=== PATIENT | male | born 1940 | race Caucasian/White ===

== ENCOUNTER → 2023-10-07 07:27 | Outpatient (REF) | payer OTHER, SELFPAY ==
[2023-10-07 08:18] VITALS: BP 115/70; BP_SYST 67
== END ==
LOC: RADI 07:27
PROVIDERS: ATTENDING PHYSICIAN Surgery
DX: Z43.4 Encounter for attention to other artificial openings of digestive tract (principal); K81.0 Acute cholecystitis
CPT/HCPCS: 47531

== ENCOUNTER 2023-10-10 18:47 | Outpatient (RCR) | payer OTHER, SELFPAY | END 2023-10-10 23:59 | disposition home or self-care (01) | LOC: RPT 18:47 | PROVIDERS: ATTENDING PHYSICIAN Physical Medicine & Rehabilitation; FAMILY PHYSICIAN Family Medicine | DX: S72.92XD Unspecified fracture of left femur, subsequent encounter for closed fracture with routine healing (principal); R26.2 Difficulty in walking, not elsewhere classified; Z73.6 Limitation of activities due to disability; M62.81 Muscle weakness (generalized); K81.0 Acute cholecystitis; Z98.890 Other specified postprocedural states | CPT/HCPCS: 97110; 97112; 97116; 97162; 97530 ==

== ENCOUNTER 2023-10-14 06:29 | Day surgery (SDC) | payer OTHER, SELFPAY ==
[2023-10-07 08:15] LABS: % Basophils 0.9 % (0-2); % Eosinophils 2.6 % (0-6); % Immature Granulocytes 0.9 % (0-0.5); % Lymphocytes 13.9 % (20.5-51.1); % Monocytes 9.3 % (1.7-9.3); % Neutrophils 72.4 % (42.2-75.2); Absolute Basophils 0.1 10^3/uL (0-0.2); Absolute Eosinophils 0.2 10^3/uL (0-0.7); Absolute Immature Granulocytes 0.1 10^3/uL (0-0.05); Absolute Lymphocytes 0.8 10^3/uL (1.2-3.4); Absolute Monocytes 0.5 10^3/uL (0.1-0.6); Absolute Neutrophils 4.2 10^3/uL (1.4-6.5); Hematocrit 33.3 % (39.0-52.0); Hemoglobin 10.9 g/dL (13.0-18.0); Mean Corp Hgb Conc. 32.7 g/dL (33.0-37.0); Mean Corpuscular Volume 88.6 fL (80.0-94.0); Mean Platelet Volume 10.8 fL (7.4-10.4); Nucleated Red Blood Cells % 0 % (-); Platelet Count 195 10^3/uL (130-400); Red Blood Cell Count 3.76 10^6/uL (4.70-6.10); Red Cell Dist. Width 15.6 % (11.5-14.5); White Blood Cell Count 5.8 10^3/uL (4.8-10.8)
[2023-10-07 08:59] LABS: ALT (SGPT) 18 U/L (0-50); AST (SGOT) 21 U/L (17-59); Albumin 3.1 g/dl (3.5-5.0); Alkaline Phosphatase 115 U/L (38-126); Blood Urea Nitrogen 12 mg/dl (9-20); Calcium 8.6 mg/dl (8.4-10.2); Carbon Dioxide 22 mmol/L (22-30); Chloride 111 mmol/L (98-107); Glucose 118 mg/dl (70-99); Potassium 3.7 mmol/L (3.5-5.1); Sodium 139 mmol/L (135-145); Total Bilirubin 0.6 mg/dl (0.2-1.3); Total Protein 5.5 g/dl (6.3-8.2); eGFR > 60.00
[2023-10-14] VITALS (17 sets, daily range): BP systolic 10–163; BP diastolic 58–88; BMI 29.0
--- NOTE | 2023-10-14 08:39 | W.SUR.PREOP ---
Pre-Operative Surgical Note
-
I have examined this patient prior to the performance of the scheduled procedure.
The patient's condition is unchanged from the time of the current History and
Physical and the patient is able to undergo the scheduled procedure.
[2023-10-14] MEDS: NORMOSOL-R 1000 IV (08:50)
[2023-10-14] MEDS: TYLENOL 500 MG PO (08:51)
--- NOTE | 2023-10-14 11:38 | W.IMMPOSTOP ---
Addendum entered and electronically signed by Jacky Lara MD 10/14/23 11:57:
#[id number]
Original Note:
Surgical Immed Post Op Note
-
Primary Surgeon: Jane
Assisting Surgeon: Emy Valiente
Pre-op Diagnosis: Chronic calculus cholecystitis
Post-op Diagnosis: Chronic calculus cholecystitis
Procedure Performed: Laparoscopic cholecystectomy
Anesthesia Type: GETA +0.25% Marcaine
Specimen / Cultures: Gallbladder
Estimated Blood Loss: 24 mL
Complications: None immediate
Operative Findings: Cholecystostomy tube in place. Contracted and fibrotic gallbladder. Adhesions to gallbladder. Cystic duct full of sludge/small stones. Cystic triangle with typical fibrotic and inflammatory tissues. Cystic duct divided with
Endo SHAMAR stapler.
Drains: 19 Ming
Plan: Advance diet as tolerated. Hold therapeutic anticoagulation, Eliquis until Tuesday p.m. dose assuming CARMEN outputs remain not sanguinous.
Maintain CARMEN drain 5 to 7 days postop to monitor for potential risk of cystic duct bile leak.
Patient's daughter updated postop in waiting area
[2023-10-14] MEDS: NSS 1000 IV (12:37)
[2023-10-14] MEDS: DILAUDID 0.25 MG IV ×2 (12:58→17:54)
--- NOTE | 2023-10-14 15:00 | PTCARENOTE ---
Pt arrived to 2S in bed. Full assessment completed. Abdominal lap sites C/D/I, glued and ADÁN. CARMEN drain with serosanguineous output. Nasal cannula maintained. IVF infusing per order. Bed locked and in the lowest position, safety maintained. Oriented
to room and call obando.
[2023-10-14] MEDS: COREG 6.25 MG PO (20:25)
[2023-10-14] MEDS: VESICARE 10 MG PO (22:28)
[2023-10-14] MEDS: ROXICODONE 5 MG PO (22:31)
[2023-10-14] MEDS: NSS IV (23:55)
[2023-10-15 03:49] VITALS: BP 144/61
[2023-10-15 06:00] VITALS: BMI 29.4
[2023-10-15] MEDS: ROXICODONE 5 MG PO ×2 (06:25→12:08)
[2023-10-15 07:45] VITALS: BP 138/60
--- NOTE | 2023-10-15 08:26 | W.PN.GS2 ---
Today's Communication / Plan
-
Dispo planning
Assessment / Plan
-
Ashleyeint is an 83 yo male with recent h/o HFrEF on chronic Eliquis for PAF with recent acute calculus cholecystitis with placement of perc osiris tube now POD #1 lap osiris
AFVSS
Tolerating diet
Plan:
-- Continue CARMEN drain upon discharge, will tentatively remove in clinic next week pending outputs
-- Continue low fat diet
-- Analgesics as needed
-- Resume Eliquis tomorrow evening
-- Labs this am pending
-- Discharge planning
Subjective Data
-
Date of Service: October 15, 2023
Patient seen and examined at bedside with Dr. Philip. Wheeler n/v. Tolerating diet. Notes incisional pain with cough/sneeze but otherwise comfortable.
Objective Data
-
Intake and Output
10/14/23 10/15/23 10/16/23
06:59 06:59 06:59
Intake Total 1240 / 1240
Output Total 640 / 640
Balance 600 / 600
Intake:
Oral fluids 840 / 840
IV fluids (Total) 400 / 400
normosol 200 / 200
IV piggybacks 0 / 0
Output:
Drain Output (Total) 60 / 60
Right Middle Biliary A 60 / 60
Urine, Voided 580 / 580
Vital Signs
Temp Pulse Resp BP Pulse Ox
98.2 F 83 20 144/61 97
10/15/23 03:49 10/15/23 03:49 10/15/23 03:49 10/15/23 03:49 10/15/23 03:49
Lab Results
10/07/23 07:57
10/07/23 07:57
Calcium 8.6 mg/dl (8.4-10.2) 02/23/24 07:57
Total Bilirubin 0.6 mg/dl (0.2-1.3) 10/07/23 07:57
AST 21 U/L (17-59) 10/07/23 07:57
ALT 18 U/L (0-50) 10/07/23 07:57
Alkaline Phosphatase 115 U/L (38-126) 10/07/23 07:57
Total Protein 5.5 g/dl (6.3-8.2) L 10/07/23 07:57
Albumin 3.1 g/dl (3.5-5.0) L 10/07/23 07:57
Physical Exam
-
NAD, Ox3
ABD soft, expected incisional tenderness, CARMEN with clear serous drainage
Incisions clear, dry with intact glue, no erythema, well approximated
[2023-10-15] MEDS: COREG 6.25 MG PO (08:27)
[2023-10-15] MEDS: CRESTOR 20 MG PO (08:27)
[2023-10-15] MEDS: PROTONIX 40 MG PO (08:27)
[2023-10-15] MEDS: LOW STRENGTH ASPIRIN 81 MG PO (08:27)
[2023-10-15] MEDS: JARDIANCE 10 MG PO (08:28)
[2023-10-15 09:27] LABS: Hematocrit 33.5 % (39.0-52.0); Hemoglobin 10.8 g/dL (13.0-18.0); Mean Corp Hgb Conc. 32.2 g/dL (33.0-37.0); Mean Corpuscular Hgb 28.6 pg (27.0-31.0); Mean Corpuscular Volume 88.9 fL (80.0-94.0); Mean Platelet Volume 10.8 fL (7.4-10.4); Platelet Count 211 10^3/uL (130-400); Red Blood Cell Count 3.77 10^6/uL (4.70-6.10); Red Cell Dist. Width 15.6 % (11.5-14.5); White Blood Cell Count 11.5 10^3/uL (4.8-10.8)
[2023-10-15 09:58] LABS: ALT (SGPT) 21 U/L (0-50); AST (SGOT) 34 U/L (17-59); Albumin 3.2 g/dl (3.5-5.0); Alkaline Phosphatase 99 U/L (38-126); Blood Urea Nitrogen 11 mg/dl (9-20); Calcium 8.9 mg/dl (8.4-10.2); Carbon Dioxide 26 mmol/L (22-30); Chloride 107 mmol/L (98-107); Estimated Creatinine Clearance 98 ml/min; Glucose 110 mg/dl (70-99); Sodium 136 mmol/L (135-145); Total Bilirubin 0.4 mg/dl (0.2-1.3); Total Protein 5.5 g/dl (6.3-8.2); eGFR > 60.00
--- NOTE | 2023-10-15 10:47 | CM ---
Cm met with pt bedside
Pt resides with his dtr and ALPESH in a 1st floor setup with 0STE
Pt notes independence with use of a WW or SPC
Pt recently discharged form [place] and has been attending outpt PT
Pt has hx with [facility]
PCP- Abdirashid Shukla
Rx- [facility], narc to [facility] [address]
CM consult for VN
Pt declined as dtr is a nurse with [facility] and able to handle drain care
He plans to resume outpt PT on dc
Call with dtr to verify plan- she is in agreement
Update TT/L. Jazzmine
Discharge Disposition- home, no needs- dtr transport
[2023-10-15 11:35] VITALS: BP 130/59
--- NOTE | 2023-10-15 12:37 | W.DS.TRANS ---
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
-
Discharge Instructions:
Sleep Apnea Risk Intermediate
Discharge Diagnosis/Procedures Laparoscopic cholecystectomy
Diet As tolerated,Low Fat
Activity No strenuous activity
Additional Activity No lifting over 15 to 20 pounds for 4 weeks.
Bathing Restrictions OK to Shower
Wound Care Glue at surgical sites typically peels off in 2
to 3 weeks. Change the dry gauze dressing over
your drain daily and as needed. Keep track of
the amount draining from your tube and bring to
your office visit early next week. Call your
surgeon if the drainage from your tube become
green.
Resume your eliquis on Tuesday evening.
Instructions: Guillermo-Morales Drain
How to Keep Track of Your Drainage
Stand-Alone Forms:
Changes to Home Medications: No
Discharge Medications:
DC Medications w/original date entered in [email or web address]
rosuvastatin 20 mg tablet 20 mg PO DAILY High cholesterol 12/30/10
carvedilol 6.25 mg tablet 6.25 mg PO BID Blood pressure 01/15/22
multivitamin with folic acid 400 mcg tablet (Tab-A-Nanci) 1 tab PO HS Supplement 01/15/22
apixaban 5 mg tablet (Eliquis) 5 mg PO BID Blood clot prevention/tx #60 tabs 01/22/22
pantoprazole 20 mg tablet,delayed release 40 mg PO DAILY Gastrointestinal Issue 02/22/23
solifenacin 10 mg tablet 10 mg PO HS Urinary Issue 02/22/23
empagliflozin 10 mg tablet (Jardiance) 10 mg PO DAILY 07/31/23
aspirin 81 mg capsule 81 mg PO DAILY 10/13/23
lidocaine 4 % topical patch 1 patch topical DAILY PRN left calf pain 10/13/23
acetaminophen 325 mg tablet (Tylenol) 325 mg PO ONCE 10/14/23
acetaminophen 325 mg tablet 650 mg PO Q4HPRN PRN mild pain #1 tab 10/15/23
oxycodone 5 mg tablet 5 mg PO Q4HPRN PRN breakthrough/severe pain #10 tabs 10/15/23
Home Medication Changes
Pending Results: No
== END 2023-10-15 13:12 | disposition home or self-care (01) ==
LOC: SDS 06:29
PROVIDERS: Registered Nurse; ATTENDING PHYSICIAN Surgery
DX: K80.10 Calculus of gallbladder with chronic cholecystitis without obstruction (principal)
CPT/HCPCS: 47562; 88304; 36415; 80053; 85025; 85027; 88341; 88342

== ENCOUNTER 2023-11-09 16:53 | Outpatient (RCR) | payer OTHER, SELFPAY | END 2023-11-09 23:59 | disposition home or self-care (01) | LOC: RPT 16:53 | PROVIDERS: ATTENDING PHYSICIAN Physical Medicine & Rehabilitation; FAMILY PHYSICIAN Family Medicine | DX: Z47.89 Encounter for other orthopedic aftercare (principal); S72.92XD Unspecified fracture of left femur, subsequent encounter for closed fracture with routine healing; R26.2 Difficulty in walking, not elsewhere classified; Z73.6 Limitation of activities due to disability; M62.81 Muscle weakness (generalized) | CPT/HCPCS: 97110; 97116; 97530 ==

== ENCOUNTER 2023-12-12 18:01 | Outpatient (RCR) | payer OTHER, SELFPAY | END 2023-12-12 23:59 | disposition home or self-care (01) | LOC: RPT 18:01 | PROVIDERS: ATTENDING PHYSICIAN Physical Medicine & Rehabilitation; FAMILY PHYSICIAN Family Medicine | DX: S72.92XD Unspecified fracture of left femur, subsequent encounter for closed fracture with routine healing (principal); R26.2 Difficulty in walking, not elsewhere classified; M62.81 Muscle weakness (generalized); Z73.6 Limitation of activities due to disability; K81.0 Acute cholecystitis; Z98.890 Other specified postprocedural states | CPT/HCPCS: 97110; 97116; 97530 ==

== ENCOUNTER 2024-01-11 17:04 | Outpatient (RCR) | payer OTHER, SELFPAY | END 2024-01-11 23:59 | disposition home or self-care (01) | LOC: RPT 17:04 | PROVIDERS: ATTENDING PHYSICIAN Physical Medicine & Rehabilitation; FAMILY PHYSICIAN Family Medicine | DX: S72.92XD Unspecified fracture of left femur, subsequent encounter for closed fracture with routine healing (principal); R26.2 Difficulty in walking, not elsewhere classified; Z98.890 Other specified postprocedural states; M62.81 Muscle weakness (generalized); Z73.6 Limitation of activities due to disability | CPT/HCPCS: 97110; 97116; 97530 ==

== ENCOUNTER 2024-02-08 16:15 | Outpatient (RCR) | payer OTHER, SELFPAY | END 2024-02-08 23:59 | disposition home or self-care (01) | LOC: RPT 16:15 | PROVIDERS: ATTENDING PHYSICIAN Physical Medicine & Rehabilitation; FAMILY PHYSICIAN Family Medicine | DX: S72.92XD Unspecified fracture of left femur, subsequent encounter for closed fracture with routine healing (principal); Z98.890 Other specified postprocedural states; R26.2 Difficulty in walking, not elsewhere classified; Z91.81 History of falling | CPT/HCPCS: 97110; 97116; 97530 ==

== ENCOUNTER 2024-03-07 02:00 | Inpatient (IN) | payer OTHER, SELFPAY ==
[2024-03-06 21:11] VITALS: BP 149/72
--- NOTE | 2024-03-06 22:40 | ED.MUSCINJ ---
HPI-Injury
General
Chief Complaint: Extremity Pain (non-traumatic)
Source: patient
Exam Limitations: none
Time Seen by Provider: 03/06/24 22:09
History of Present Illness-Injury
Is this injury a work related problem?: No
Is pt an associate of [facility]?: No
Initial Injury comments:
This is a 83 year old male that comes in with c/o left knee pain. States that today he was sitting on the bed and they have a satin spread. States that he started to slip off and he landed on both of his knee's. States that he is in PT and they are
teaching him how to get up form a fall. States that he was unable to get up and his family helped him back up to the bed. State that he was up walking around after this. State that around 9:15 he walked to his porch and was reading. State that he
went to get up and he had pain in the left knee. States that he got to his Recliner and after that he was unable to got up or out of his chair. Denies hitting his head or any LOC. Denies any fever, chills, chest pain, SOB, abd pain, nausea,
vomiting, diarrhea, headache, dizziness, urinary burning.
Past History
Past History
ED Past Medical History: Arrthythmia (Atrial fib flutter), CAD ([place] 1996 ), Cancer (Prostate cancer, Skin cancer), CHF, GERD, HTN, Hypercholesterolemia, MA and Other (PE/ DVT, Arthritis, Back and neck pain, Numbness and tingling arms and legs,
Subdural hematoma, UTI, Eczema)
ED Past Surgical History: Cardiac (Cardiac catheterization 1996 with no intervention needed , Stent), Orthopedic (Lumbar laminectomy, arthroscopy bilateral knees , Right and left knee replacement, Left femur with darnell), Tonsilectomy (Adenoids) and
Other (Hernia surgery, Cataracts, )
Social History
Tobacco: Non-smoker
Alcohol: None
Drug: None
Personal:
Living: with family
Review of Systems
Review of Systems
All Other Systems: ROS reviewed and negative except as documented in HPI and ROS
Constitutional: Reports no symptoms; Denies fever or chills
EENT: Reports no symptoms
Respiratory: Reports no symptoms; Denies cough or trouble breathing
Cardiac: Reports no symptoms; Denies chest pain
ABD/GI: Reports no symptoms; Denies abdominal pain, nausea, vomiting or diarrhea
: Reports no symptoms; Denies dysuria, frequency or urgency
Musculoskeletal: Reports joint pain (Left knee pain)
Skin: Reports no symptoms
Neurological: Reports no symptoms; Denies dizzy or headache
Psychiatric: Reports no symptoms
Musculoskeletal Injury Exam
Musculoskeletal Injury Exam
Left Lateral Knee:
Pain with Movement?: Moderate
Tender to palpation?: Mild
Soft tissue swelling?: Mild
External deformity and angulation?: None
Joint effusion?: None
Contusion?: None
Hematoma-local bleeding into tissue?: None
Strain- Sprain- Tear (Connective tissue injury)?: None
Crepitus with movement?: No
Joint instability?: No
Malalignment/deformity?: No
Range of motion: Limited (Due to pain)
Distal skin color and temperature: normal-warm & good color
Capillary Refill: normal
Normal distal neurovascular exam?: Yes
Phy Exam
General Physical Exam
General Presentation: no apparent distress
General age: appears stated age
General Skin: warm and dry
General Habitus: elderly
General Mental: alert
General Hydration: appears well hydrated
ENT Exam
ENT Exam: TM's normal, pharynx normal and neck supple
Eye Exam
Eye Exam: EOMI
Cardiovascular Exam
Cardiovascular Exam: regular rate/rhythm and normal peripheral pulses
Pulmonary Exam
Pulmonary Exam: lungs clear, no respiratory distress, no rales, chest non tender, no crackles, no rhonchi, no wheezing and no cough
Gastrointestinal Exam
Gastrointestinal Exam: normal bowel sounds, non tender, soft, no organomegaly, no pulsatile mass and non distended
Musculoskeletal Exam
Musculoskeletal Exam: other (Left knee tenderness with palpation and swelling. Limited ROM due to pain)
Skin Exam
Skin Exam: normal color, warm/dry and no petechia
Psychiatric Exam
Psychiatric Exam: normal mood/affect
Injury Course
Orders/Labs/Results
Orders:
Orders
03/06/24 22:24
Acetaminophen [Tylenol] 1,000 mg PO NOW STA
Knee, Left 4 or More Views [CR Knee - Left 4 Or More View*] Urgent
Comment:
Reason For Exam: Fall, knee pain
03/06/24 23:28
Femur, Left 2 View [CR Femur - Left Min 2 Vw] Urgent
Comment:
Reason For Exam: Fall, knee pain
03/07/24 00:10
Consult Orthopedic [ORTHOPEDIC CONSULT] Urgent
Consulting Provider: Gunner Cross
Was physician already notified: Yes
03/07/24 00:49
Complete Blood Count/With Diff Urgent
Comprehensive Metabolic Panel Urgent
03/07/24 01:05
Admit/Transfer Patient As Directed
Co-Sign Provider:
Level of Care: Inpatient admission
Assign to:: Telemetry
Physician / Group: [email or web address]
Diagnosis: Acute Lt disal femir Fx s/p fall
Reason for Telemetry: Arrhythmia
Date to Stop Telemetry: 03/10/24
Time to Stop Telemetry: 11:00
Reason for Hospitalization: Acute Lt disal femir Fx s/p fall
Expected length of stay greater than two midnights?: Yes
ELOS- Estimated Length of Stay in days: 3
I certify the patient meets the requirements for IP care: Yes
03/07/24 01:07
Code Status As Directed
Resuscitation Status: Full Code
03/10/24 11:00
DC Protocol for Telemetry ONCE
Abnormal Lab Results
03/07/24
00:49
RBC 4.14 L 10^6/uL
(4.70-6.10)
Hgb 12.8 L g/dL
(13.0-18.0)
Hct 36.6 L %
(39.0-52.0)
MPV 10.6 H fL
(7.4-10.4)
Immature Gran % 0.6 H %
(0-0.5)
Lymphocytes % 18.6 L %
(20.5-51.1)
Chloride 109 H mmol/L
(98-107)
BUN 21 H mg/dl
(9-20)
Creatinine 0.6 L mg/dL
(0.7-1.3)
Glucose 130 H mg/dl
(70-99)
Total Protein 5.9 L g/dl
(6.3-8.2)
03/07/24 00:49
03/07/24 00:49
H/H slightly low. Chloride slightly elevated. Slight Dehydration. Glucose nonfasting. Total protein slightly low.
MDM/Problems Addressed
Differential Diagnosis Includes:
Contusion, Fracture knee
MDM/Problems Addressed:
This is a 83 year old male that comes in with c/o left knee pain. States that he slid off the bed onto both knee's. States that he was able to walk and then later in the day he was unable to get out of his chair. States that he has pain in the left
knee.
Will get X-rays.
Back into see patient. Explained that he has a fracture of the distal femur. Will admit patient to hospitalist and consult Orthopedics.
Chronic conditions affecting care:
Bilateral knee replacements
Acute Exacerbation and/or Progression of Chronic Illness:
Bilateral knee replacements
*Radiology
Radiology exam reviewed: radiology read reviewed (Left knee-Oblique fracture of the distal femoral metadiaphysis without displacement, only partially included in the field of view)
*Pulse Oximetry
Patient hypoxic: no
*EKG
Interpreted by ED Provider?: NA
Rate: EKG- N/A
*[employer] Interpretation
Rate: [employer] [employer]- N/A
*Critical Care Note
Total Time (30-74mins, 75-104mins- exclusive of procedures): Not Applicable
ED Attending Note
-
Portions of this chart may have been created with voice recognition software.� Occasional wrong word or��sound alike� substitutions may have occurred due to the inherent limitations of voice recognition software.
Discharge Plan
Departure
Patient Disposition: Admit
Date of Disposition: 03/07/24
Time of Disposition: 00:10
Admit to: Med/Surg
Presentation/result/management discussed w/ accepting MD/DO: Hospitalist
Patient with high blood pressure during this ER visit?: Yes
Condition: Good
Covid-19: Not Applicable
Discharge Problem:
Femoral distal fracture, Ambulatory dysfunction
Prescriptions:
No Action
rosuvastatin 20 MG tablet
20 mg PO DAILY
multivitamin with folic acid [Tab-A-Nanci] 1 TABLET tablet
1 tab PO HS
carvedilol 6.25 MG tablet
6.25 mg PO BID
Eliquis 5 MG tablet
5 mg PO BID Qty: 60 3RF
pantoprazole 20 mg Tablet,Delayed Release (Dr/Ec)
40 mg PO DAILY
solifenacin 10 mg Tablet
10 mg PO HS
Jardiance 10 mg tablet
10 mg PO DAILY
lidocaine 4 % adhesive patch,medicated
1 patch TOPICAL DAILY PRN (Reason: left calf pain)
aspirin 81 mg Capsule
81 mg PO DAILY
Patient Comments:
WHILE OFF ELIQUIS
acetaminophen [Tylenol] 325 mg Tablet
325 mg PO ONCE
acetaminophen [acetaminophen] 325 mg tablet
650 mg PO Q4HPRN PRN (Reason: mild pain) Qty: 1 0RF
oxycodone 5 mg tablet
5 mg PO Q4HPRN PRN (Reason: breakthrough/severe pain) Qty: 10 0RF
Referrals:
Abdirashid Shukla MD [Family Provider] -
Interventions
Interventions:
*Risk Screen - Suicide Last Done: 03/06/24 21:11
*General Assessment Last Done: 03/06/24 21:11
*Neglect/Abuse Screening Last Done: 03/06/24 21:11
*ED COVID-19 Vaccine History Last Done: 03/06/24 21:11
ED-Skin Assessment Last Done: 03/07/24 00:57
ED-Musculoskeletal Assessment Last Done: 03/07/24 00:57
Discharge Date and Time
Print Language: UPPER SORBIAN
[2024-03-07] VITALS (7 sets, daily range): BP systolic 116–138; BP diastolic 53–59; PULSE 57; O2SAT 98; BMI 29.7
[2024-03-07 00:57] LABS: % Basophils 0.4 % (0-2); % Eosinophils 1.4 % (0-6); % Immature Granulocytes 0.6 % (0-0.5); % Lymphocytes 18.6 % (20.5-51.1); % Monocytes 8.7 % (1.7-9.3); % Neutrophils 70.3 % (42.2-75.2); Absolute Eosinophils 0.1 10^3/uL (0-0.7); Absolute Lymphocytes 1.3 10^3/uL (1.2-3.4); Absolute Monocytes 0.6 10^3/uL (0.1-0.6); Absolute Neutrophils 4.9 10^3/uL (1.4-6.5); Hematocrit 36.6 % (39.0-52.0); Hemoglobin 12.8 g/dL (13.0-18.0); Mean Corpuscular Hgb 30.9 pg (27.0-31.0); Mean Corpuscular Volume 88.4 fL (80.0-94.0); Mean Platelet Volume 10.6 fL (7.4-10.4); Nucleated Red Blood Cells % 0 % (-); Platelet Count 143 10^3/uL (130-400); Red Blood Cell Count 4.14 10^6/uL (4.70-6.10); Red Cell Dist. Width 14.3 % (11.5-14.5); White Blood Cell Count 6.9 10^3/uL (4.8-10.8)
--- NOTE | 2024-03-07 00:58 | HPS.HSE ---
Family Physician
-
Family Physician: Abdirashid Shukla
Chief Complaint
-
Lt hip pain s/p Fall
History of Present Illness
83M HX Both TKA, Chr HFrEF , Amairani Flutter, CAD, PE/DVT, HX SDH seen at ER for evaluation of Lt. knee pain s/p fall at home:
- Reports slipped out of bed during PT while learning how to get up after witnessed fall.
- reports family helped him back up to the bed
- He was up walking around after the fall
- Tonight report Lt knee pain and unable to get out of the recliner
- Denies hitting his head or any LOC.
Medical History
Past Medical History
Past Medical History: Reports Other
Additional Past Medical History:
Atrial fib flutter
CAD ([place] 1996)
Prostate cancer, Skin cancer
CHF'
GERD
HTN
HLD
PE/ DVT
HX SDH
Arthritis
Back and neck pain
Numbness and tingling arms and legs,
UTI,
Eczema
Past Surgical History: Reports Other
Additional Past Surgical History:
Cardiac catheterization 1996 with no intervention needed , Stent
Lumbar laminectomy
arthroscopy
bilateral knees , Right and left knee replacement, Left femur with darnell
Tonsillectomy (Adenoids)
Hernia surgery
Cataracts, )
Social History
Tobacco: Non-smoker
Drug: None
Personal:
Living: With Family
Family History
Family History: Not pertinent
Allergies / Home Medications
Allergies reflects when Allergies were last updated in [facility].
Home Medications with original date entered in [facility]
Allergy/Medication List:
Allergies
Allergy/AdvReac Type Severity Reaction Status Date / Time
No Known Drug Allergies Allergy Unknown Verified 03/06/24 21:25
Home Medications
rosuvastatin 20 mg tablet 20 mg PO DAILY High cholesterol 12/30/10
carvedilol 6.25 mg tablet 6.25 mg PO BID Blood pressure 01/15/22
multivitamin with folic acid 400 mcg tablet (Tab-A-Nanci) 1 tab PO HS Supplement 01/15/22
apixaban 5 mg tablet (Eliquis) 5 mg PO BID Blood clot prevention/tx #60 tabs 01/22/22
pantoprazole 20 mg tablet,delayed release 40 mg PO DAILY Gastrointestinal Issue 02/22/23
solifenacin 10 mg tablet 10 mg PO HS Urinary Issue 02/22/23
empagliflozin 10 mg tablet (Jardiance) 10 mg PO DAILY 07/31/23
aspirin 81 mg capsule 81 mg PO DAILY 10/13/23
lidocaine 4 % topical patch 1 patch topical DAILY PRN left calf pain 10/13/23
acetaminophen 325 mg tablet (Tylenol) 325 mg PO ONCE 10/14/23
acetaminophen 325 mg tablet 650 mg (2 x 325 mg) PO Q4HPRN PRN mild pain #1 tab 10/15/23
oxycodone 5 mg tablet 5 mg PO Q4HPRN PRN breakthrough/severe pain #10 tabs 10/15/23
Review of Systems
-
Constitutional: Reports No Symptoms
EENT: Reports No Symptoms
Respiratory: Reports No Symptoms
Cardiac: Reports No Symptoms
Abdomen/GI: Reports No Symptoms
: Reports No Symptoms
Musculoskeletal: Reports See HPI
Skin: Reports No Symptoms
Neurological: Reports No Symptoms
Endocrine: Reports No Symptoms
Hematologic/Lymphatic: Reports No Symptoms
Psych: Reports No Symptoms
Physical Exam
Vital Signs
Vital Signs
Temp Pulse Resp BP Pulse Ox
96.4 F L 77 16 125/55 97
03/07/24 00:20 03/07/24 00:20 03/06/24 21:11 03/07/24 00:20 03/07/24 00:20
Physical Exam
General: No Apparent Distress, Comfortable and Conversant
HEENT: Anicteric and Moist mucous membranes
Respiratory: Clear; No Wheezes, Rales or Rhonchi
Cardiac: S1/S2 and Regular Rhythm
Breast: Deferred by me
GI: Soft, Non Tender, Non Distended and Normal Bowel Sounds
Genito-urinary: Deferred by me
Musculoskeletal: No Edema and Other (Lt distal femur undr IAN wrap )
Laboratory Results
-
03/07/24 00:49
Data Reviewed
-
CT Scan: Report Reviewed by me
Lab Data: Labs Reviewed by me
Old Records: Reviewed
Impression/Plan
-
Reviewed VS: 95.9 HR 77 BP 125/55
Data
03/06/24 Lt Knee XR
- Oblique fracture of the distal femoral metadiaphysis without displacement, only partially included in the [id number]-eirb.
- Intramedullary darnell in the femur transfixed by two distal interlocking screws.
- Total knee arthroplasty hardware appears intact and well-positioned.
- No dislocation.
- Small to moderate knee joint effusion. Vascular calcifications.
09/03/2023 TTE
Normal LV size, mild apical hypokinesis, normal LV wall thickness
EF 50 to 55%, diastolic function indeterminate, mildly thickened mitral valve, adequate mitral leaflet, mitral annular calcification, trace MR mild TR. EF improved from prior echo 01/15/2022 which was 45 %.
Last hospitalist admission:
ASSESSMENT & PLAN
Pending Rx reconciliation
Acute oblique Fx of the distal Lt. femoral metadiaphysis without displacement- s/p mechanical fall
Total knee arthroplasty hardware appears intact and well-positioned.
- Fx set protocol and NPO and NWB till seen by Ortho
- PRN Analgesia
- held Eliquis in case Ortho intervention - last dose on 8am Tu03/06/24
- Ortho consulted
HX IM nail L femur 08/01/[address] [facility]
[address] Olivia, reviewed x rays, no need for intervention. Well aligned fixation of left hip
HX [facility] Rehab
HX Chr HFrEF
Cardiomyopathy
LVEF 40 to 45% January 2022 ECHO
LVEF 50 to 55 % in 09/03/23 ECHO
-stable
- cont. Carvedilol
Multivessel CAD
HLD
- Remote HX STEMI
- he has refused CABG and underwent LAD PCI January 2022
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
Paroxysmal atrial fibrillation
- held Eliquiss in case Ortho intervention
- cont. Carvedilol
HX PE
- held Eliquis
HX Diabetes
- on Jardiance
- add ISS low
Known HX - not acute problems
Obesity with a BMI of 31
HX SDH
Prostate CA by history
HX Proteus UTI
Compression fractures lumbar DJD
Nephrolithiasis left kidney
Cpgxqc-drjywt-fhiqhtsrr counseling
DVT Px: SCD
Code: Full
IP TLM
[2024-03-07 01:12] LABS: ALT (SGPT) 18 U/L (0-50); AST (SGOT) 27 U/L (17-59); Albumin 3.8 g/dl (3.5-5.0); Alkaline Phosphatase 89 U/L (38-126); Blood Urea Nitrogen 21 mg/dl (9-20); Calcium 9.3 mg/dl (8.4-10.2); Carbon Dioxide 24 mmol/L (22-30); Chloride 109 mmol/L (98-107); Glucose 130 mg/dl (70-99); Potassium 3.9 mmol/L (3.5-5.1); Sodium 143 mmol/L (135-145); Total Bilirubin 0.8 mg/dl (0.2-1.3); Total Protein 5.9 g/dl (6.3-8.2); eGFR > 60.00
[2024-03-07] MEDS: DILAUDID 0.25 MG IV (01:58)
[2024-03-07] MEDS: TYLENOL 650 MG PO ×5 (03:06→20:42)
--- NOTE | 2024-03-07 03:20 | PTCARENOTE ---
Pt admitted to 2S. Assessment done and Charted. AAOx3 forgetful at times. Pt is NSR with 1st degree block and PVC's. Lung sounds are diminished at the bases, Sao2 95% RA. bedrest. pt appears comfortable in bed. Overlay mattress in place. Call obando
within reach
[2024-03-07 05:22] LABS: Glucose - Point of Care 124 mg/dl (70-99)
--- NOTE | 2024-03-07 07:53 | W.PN.HOSP.TC ---
Today's Communication/Plan
-
NWB LLE
pain control
PT/OT
discharge planning SNF rehab
Assessment / Plan
Assessment / Plan
Physical Exam
General: No Apparent Distress, Comfortable at rest
HEENT: Anicteric and Moist mucous membranes
Respiratory: Clear; No Wheezes, Rales or Rhonchi
Cardiac: S1/S2 and Regular Rhythm
GI: Soft, Non Tender, Non Distended and Normal Bowel Sounds
Musculoskeletal: No Edema and Lt knee immobilizer in place
Neuro: Awake Alert Conversant Coherent
Acute oblique Fx of the distal Lt. femoral metadiaphysis without displacement- s/p mechanical fall
Total knee arthroplasty hardware appears intact and well-positioned.
- Fx set protocol and NPO and NWB till seen by Ortho
- PRN Analgesia
- Ortho consult appreciated conservative mgmt recommended non-weight bearing
HX IM nail L femur 08/01/2023 [facility]
HX [facility] Rehab
HX Chr HFrEF
Cardiomyopathy
LVEF 40 to 45% January 2022 ECHO
LVEF 50 to 55 % in 09/03/23 ECHO
-stable
- cont. Carvedilol
Multivessel CAD
HLD
- Remote HX STEMI
- he has refused CABG and underwent LAD PCI January 2022
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
Paroxysmal atrial fibrillation
- Eliquis resumed
- cont. Carvedilol
HX PE
- Eliquis resumed
HX Diabetes
- on Jardiance
- add ISS low
Known HX - not acute problems
Obesity with a BMI of 31
HX SDH
Prostate CA by history
HX Proteus UTI
Compression fractures lumbar DJD
Nephrolithiasis left kidney
Lugyad-jpbgdj-hylsvhrcb counseling
DVT Px: SCD
Code: DNR/DNI as per patient and patient's daughter ANGELA Broussard at bedside
IP TLM
I spent a total of 50 minutes with the patient or on the floor. More than 50% of this time involved counseling and coordination of care.
Anticipated Discharge: 24 - 48 hours
Subjective/Interval History
-
Date of Service: March 07, 2024
No acute distress. Comfortable at rest. Endorses pain with exertion. Left knee immobilizer in place. Daughter Aarti present during evaluation.
Objective Data
-
Labs:
Laboratory Results
03/07/24
00:49
WBC 6.9
Hgb 12.8 L
Hct 36.6 L
Plt Count 143
Sodium 143
Potassium 3.9
Chloride 109 H
Carbon Dioxide 24
BUN 21 H
Creatinine 0.6 L
Glucose 130 H
Calcium 9.3
Total Bilirubin 0.8
AST 27
ALT 18
Alkaline Phosphatase 89
Vital Signs:
Vital Signs
Temp Pulse Resp BP Pulse Ox
97.2 F 77 16 125/55 96
03/07/24 01:55 03/07/24 00:20 03/06/24 21:11 03/07/24 00:20 03/07/24 02:56
--- NOTE | 2024-03-07 07:55 | CON.ORTHO ---
Consultation
-
Date/Time Consultation Requested: 03/07/2024; time unknown
Date/Time Consultation Performed: 03/07/2024; 0700
Requesting Provider: unknown
Performing Provider: Olga Flores PA-C for Dr. Gunner Cross
Reason for Consultation: Left periprosthetic femur fracture
Consultation - Orthopedics
History
Mr. Henry is an 83 year old male with PMH of Chr HFrEF , Amairani Flutter, CAD, PE/DVT, HX SDH, bilateral total knee replacements under the direction of Dr. Quinn and rececnt CMN through [facility]. He reports he was sitting on the edge of his bed when
he slipped off. He reports landing on both of his knees and experiencing immediate pain in his left knee. He reports he was initially able to get back into bed with the assistance of family, and was initially able to ambulate on the knee. He reports
his symptoms continued to get worse which prompted him to present to ED. Xrays revealed a nondisplaced periprosthetic distal femur fracture. He is resting comfortably in bed this morning. He does endorse tenderness about his distal thigh. He
reports he recently progressed to ambulating with the assistance of a cane, and has been attending outpatient physical therapy through .
He lives at home with family. He is on Eliquis daily. He has a history of PE/DVT.
Allergies / Home Medications
Allergy/AdvReac Type Severity Reaction Status Date / Time
No Known Drug Allergies Allergy Unknown Verified 03/06/24 21:25
�Medication �Instructions �Recorded
rosuvastatin 20 mg tablet 20 mg PO DAILY High cholesterol 12/30/10
carvedilol 6.25 mg tablet 6.25 mg PO BID Blood pressure 01/15/22
multivitamin with folic acid 400 1 tab PO HS Supplement 01/15/22
mcg tablet (Tab-A-Nanci)
apixaban 5 mg tablet (Eliquis) 5 mg PO BID Blood clot 01/22/22
prevention/tx #60 tabs
pantoprazole 20 mg tablet,delayed 40 mg PO DAILY Gastrointestinal 02/22/23
release Issue
solifenacin 10 mg tablet 10 mg PO HS Urinary Issue 02/22/23
empagliflozin 10 mg tablet 10 mg PO DAILY 07/31/23
(Jardiance)
aspirin 81 mg capsule 81 mg PO DAILY 10/13/23
lidocaine 4 % topical patch 1 patch topical DAILY PRN left 10/13/23
calf pain
acetaminophen 325 mg tablet 325 mg PO ONCE 10/14/23
(Tylenol)
acetaminophen 325 mg tablet 650 mg (2 x 325 mg) PO Q4HPRN PRN 10/15/23
mild pain #1 tab
oxycodone 5 mg tablet 5 mg PO Q4HPRN PRN 10/15/23
breakthrough/severe pain #10 tabs
Vital Signs / Lab Results
Temp Pulse Resp BP Pulse Ox
97.2 F 77 16 125/55 96
03/07/24 01:55 03/07/24 00:20 03/06/24 21:11 03/07/24 00:20 03/07/24 02:56
03/07/24 00:49
03/07/24 00:49
XR Left Knee 03/06/24 FINDINGS/IMPRESSION:
Oblique fracture of the distal femoral metadiaphysis without displacement, only partially included in the [id number]-ddpr.
Intramedullary darnell in the femur transfixed by two distal interlocking screws. Total knee arthroplasty hardware appears intact and well-positioned. No dislocation. Small to moderate knee joint effusion. Vascular calcifications.
XR Left Femur 03/06/2024 IMPRESSION:
Nondisplaced slightly comminuted periprosthetic fracture of the distal femur diaphysis. No other hardware complication. Healed fracture of the proximal femur. Diffuse demineralization. Mild degenerative changes of the left hip. Vascular
calcifications.
Directed exam of the left lower extremity reveals posterior long leg splint in place. No obvious lacerations or abrasions about the knee. Mild effusion about the knee. Tenderness about the distal femur. No tenderness about the knee. ROM deferred
secondary to known fracture. Calf soft and nontender. Patient able to wiggle toes. Sensation intact to light touch. Capillary refill <2 seconds.
Assessment / Plan
Periprosthetic left distal femur fracture
--Unfortunately, Kris sustained a periprosthetic distal femur fracture in his fall. Thankfully, this is non-displaced and is amenable to non-operative management. I recommend immobilization in a knee immobilizer. He should remain non-weight
bearing to his left lower extremity. We will plan to follow this closely with serial radiographs, and I recommended outpatient follow up in 2 weeks for new x-rays for position check. Patient may have diet today.
--PT/OT while patient admitted.
--Case management consult for dc planning.
--Please reach out with any additional orthopedic questions or concerns.
[2024-03-07] MEDS: CRESTOR 20 MG PO (08:18)
[2024-03-07] MEDS: ASPIR LOW (ENTERIC COATED) 81 MG PO (08:19)
[2024-03-07] MEDS: COREG 6.25 MG PO ×2 (08:19→20:42)
[2024-03-07] MEDS: JARDIANCE 10 MG PO (08:19)
--- NOTE | 2024-03-07 09:19 | PTCARENOTE ---
Dr. Maria notified that patient refused AM accucheck. Order discontinued by Dr. Maria at this time. Care ongoing.
[2024-03-07] MEDS: ROXICODONE 5 MG PO ×2 (10:22→21:25)
--- NOTE | 2024-03-07 11:55 | W.PN.UPDATE ---
Update Note
Progress Note Update
Confirmed with patient and daughter ANGELA Broussard, patient's preference for DNR/DNI. Code status updated accordingly.
[2024-03-07 11:58] LABS: Glycohemoglobin (HgbA1c) 5.2 % (4.0-5.6)
[2024-03-07] MEDS: COLACE 100 MG PO ×2 (12:06→20:43)
--- NOTE | 2024-03-07 13:50 | CM ---
Addendum entered by Bonnie Houston 03/07/24 14:44:
Patient and daughter discussed options and if [facility] is unable to accept then he would like to go to [facility], [facility]. CM will send referrals. CM will continue to follow for discharge planning needs.
Plan; SNF vs [facility]
Original Note:
Patient seen at bedside with daughter on phone. Patient lives in a split level home with daughter in a in law suite. patient has to come up to the kitchen for meals. Patient wants to go home but PT/OT recommendation is for SNF; Daughter would like
patient to return to [facility]. Patient has been at [facility] x2 and has worked himself up to cane at home and using the elliptical machine 4x daily for 10 min. CM sent TT to admissions at [facility] for review of patient to determine if [facility] admission would be
possible. Patient PCP is Dr. Shukla and he uses the [facility] in [place]. Patient is alone during the daytime hours. CM will continue to follow for discharge planning needs.
Plan; home with VN vs SNF vs [facility]
[2024-03-07] MEDS: ELIQUIS 5 MG PO (20:42)
[2024-03-07] MEDS: SENOKOT 17.2 MG PO (20:42)
[2024-03-07] MEDS: THERAGRAN 1 TABLET PO (21:23)
[2024-03-07] MEDS: DETROL LA 4 MG PO (21:23)
[2024-03-08] MEDS: TYLENOL PO ×3 (00:01→17:36)
[2024-03-08 03:45] VITALS: BP 114/50
[2024-03-08 05:40] VITALS: BMI 29.9
[2024-03-08 07:39] VITALS: BP 128/53
--- NOTE | 2024-03-08 07:52 | W.PN.HOSP.TC ---
Today's Communication/Plan
-
monitor H&H Plt
IV iron supplementation
pain control
PT/OT
discharge planning SNF rehab
Assessment / Plan
Assessment / Plan
Physical Exam
General: No Apparent Distress, Comfortable at rest
HEENT: Anicteric and Moist mucous membranes
Respiratory: Clear; No Wheezes, Rales or Rhonchi
Cardiac: S1/S2 and Regular Rhythm
GI: Soft, Non Tender, Non Distended and Normal Bowel Sounds
Musculoskeletal: No Edema and Lt knee immobilizer in place
Neuro: Awake Alert Conversant Coherent
Acute oblique Fx of the distal Lt. femoral metadiaphysis without displacement- s/p mechanical fall
Total knee arthroplasty hardware appears intact and well-positioned.
- PRN Analgesia
- Ortho consult appreciated conservative mgmt recommended non-weight bearing
Anemia
Iron Deficiency
Anemia of Chronic disease
Mild Thrombocytopenia
-monitor CBC
-IV iron supplementation, switch to oral on discharge
HX IM nail L femur 08/01/2023 [facility]
HX [facility]
HX Chr HFrEF
Cardiomyopathy
LVEF 40 to 45% January 2022 ECHO
LVEF 50 to 55 % in 09/03/23 ECHO
-stable
- cont. Carvedilol
Multivessel CAD
HLD
- Remote HX STEMI
- he has refused CABG and underwent LAD PCI January 2022
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
Paroxysmal atrial fibrillation
- Eliquis resumed
- cont. Carvedilol
HX PE
- Eliquis resumed
HX Diabetes
- on Jardiance
- add ISS low
Known HX - not acute problems
Obesity with a BMI of 31
HX SDH
Prostate CA by history
HX Proteus UTI
Compression fractures lumbar DJD
Nephrolithiasis left kidney
Chnxha-rbmwmv-fzvpkhwni counseling
DVT Px: SCD
Code: DNR/DNI as per patient and patient's daughter ANGELA Broussard at bedside
IP TLM
discussed with patient at bedside and patient's daughter ANGELA Broussard over phone
I spent a total of 50 minutes with the patient or on the floor. More than 50% of this time involved counseling and coordination of care.
Anticipated Discharge: Within 24 hours
Subjective/Interval History
-
Date of Service: March 08, 2024
No acute distress appears comfortable. Reports feeling well, pain controlled when at rest.
Objective Data
-
Labs:
Laboratory Results
03/08/24
06:38
WBC Pending
Hgb Pending
Hct Pending
Plt Count Pending
Sodium Pending
Potassium Pending
Chloride Pending
Carbon Dioxide Pending
BUN Pending
Creatinine Pending
Glucose Pending
Calcium Pending
Vital Signs:
Vital Signs
Temp Pulse Resp BP Pulse Ox
97.6 F 58 20 128/53 97
03/08/24 07:39 03/08/24 07:39 03/08/24 07:39 03/08/24 07:39 03/08/24 07:39
I&O
03/07/24 03/08/24 03/09/24
06:59 06:59 06:59
Intake Total 1919 / 1919
Output Total 1200 / 1200
Balance 720 / 720
[2024-03-08 07:58] LABS: Hematocrit 33.6 % (39.0-52.0); Hemoglobin 11.6 g/dL (13.0-18.0); Mean Corp Hgb Conc. 34.5 g/dL (33.0-37.0); Mean Corpuscular Volume 89.8 fL (80.0-94.0); Mean Platelet Volume 11.2 fL (7.4-10.4); Platelet Count 129 10^3/uL (130-400); Red Blood Cell Count 3.74 10^6/uL (4.70-6.10); Red Cell Dist. Width 14.6 % (11.5-14.5); White Blood Cell Count 5.5 10^3/uL (4.8-10.8)
--- NOTE | 2024-03-08 08:24 | W.PN.UPDATE ---
Update Note
Progress Note Update
Mr. Henry is resting comfortably in bed. He does have a knee immobilizer in place, although this is over at the posterior long leg splint. The splint was removed and the knee immobilizer placed directly against the skin. Attempted to get him
into full extension while placing this. Reiterated that he will be nonweightbearing on the left lower extremity. He should wear the knee immobilizer on full-time, removing it only for icing purposes. He will likely be discharged to rehab. He
will follow-up in the office in 2 weeks for repeat x-rays.
[2024-03-08 09:05] LABS: Blood Urea Nitrogen 20 mg/dl (9-20); Carbon Dioxide 26 mmol/L (22-30); Chloride 108 mmol/L (98-107); Estimated Creatinine Clearance 84 ml/min; Glucose 99 mg/dl (70-99); Magnesium 1.8 mg/dl (1.6-2.3); Phosphorus 4.1 mg/dl (2.5-4.5); Potassium 3.9 mmol/L (3.5-5.1); Sodium 140 mmol/L (135-145); eGFR > 60.00
[2024-03-08] MEDS: PROTONIX 40 MG PO (09:42)
[2024-03-08] MEDS: CRESTOR 20 MG PO (09:42)
[2024-03-08] MEDS: TYLENOL 650 MG PO ×3 (09:42→20:27)
[2024-03-08] MEDS: ASPIR LOW (ENTERIC COATED) 81 MG PO (09:43)
[2024-03-08] MEDS: ELIQUIS 5 MG PO ×2 (09:43→20:27)
[2024-03-08] MEDS: JARDIANCE 10 MG PO (09:43)
[2024-03-08] MEDS: COREG 6.25 MG PO ×2 (09:43→20:28)
[2024-03-08] MEDS: SENOKOT 17.2 MG PO ×2 (09:43→20:27)
[2024-03-08] MEDS: COLACE 100 MG PO ×2 (09:43→20:35)
--- NOTE | 2024-03-08 09:50 | CM ---
Addendum entered by Maty Wilkerson 03/08/24 16:46:
CM attempted to call Cecelia several times to obtain NPI numbers to initiate authorization. Unable to get ahold of Cecelia. Authorization will need to be started tomorrow.
Number to initiate auth:
.
Addendum entered by Bonnie Houston 03/08/24 16:02:
Cecelia from [facility] to call back with NPI numbers and to confirm ability to accept patient to SNF tomorrow. Patient will need auth.
Addendum entered by Maty Wilkerson 03/08/24 10:03:
Spoke with Dr. Maria, via [facility] text who shared patient will need one more night in hospital. Should be medically cleared by tomorrow.
DISCHARGE DISPOSITION:
Transport to [facility] when medically cleared.
Original Note:
CM reviewed patient's chart. Patient has been accepted to [facility] and [facility]. Responded back to [facility] confirming if a bed is available today. Also messaged Dr. Maria to notify that [facility] has accepted patient and to notify CM
when/if patient is medically cleared. Will need to start insurance authorization.
[2024-03-08 10:31] LABS: Iron 48 ug/dl (49-181)
[2024-03-08 10:32] LABS: Hematocrit 34.4 % (39.0-52.0); Hemoglobin 11.7 g/dL (13.0-18.0); Platelet Count 118 10^3/uL (130-400)
[2024-03-08 10:41] LABS: Percent Saturation 19 % (20-50); Total Iron Binding Capacity 242 ug/dl (261-462)
[2024-03-08 11:18] VITALS: BP 141/56
[2024-03-08 12:40] LABS: Folate > 20.0 ng/ml (2.76-20); Vitamin B12 257 pg/ml (239-931)
[2024-03-08 15:10] VITALS: BP 129/63
[2024-03-08] MEDS: FERRLECIT 110 MG IV (15:15)
[2024-03-08] MEDS: ROXICODONE 5 MG PO ×2 (15:15→21:35)
[2024-03-08 16:20] VITALS: BP 136/58; PULSE 51; O2SAT 100
[2024-03-08] MEDS: THERAGRAN 1 TABLET PO (21:30)
[2024-03-08] MEDS: DETROL LA 4 MG PO (21:31)
[2024-03-08 23:12] VITALS: BP 152/71
[2024-03-09] MEDS: TYLENOL PO ×2 (00:21→15:01)
[2024-03-09] MEDS: TYLENOL 650 MG PO ×3 (04:11→15:15)
[2024-03-09 06:00] VITALS: BMI 30.1
--- NOTE | 2024-03-09 07:06 | W.PN.HOSP.TC ---
Addendum entered and electronically signed by Juan Maria MD 03/09/24 13:09:
Fracture Multifactorial due to low level fall and age- related osteoporosis
Addendum entered and electronically signed by Juan Maria MD 03/09/24 13:08:
Vit B12 deficiency. Supplementation started
Original Note:
Today's Communication/Plan
-
Medically stable for discharge SNF rehab.
Assessment / Plan
Assessment / Plan
Physical Exam
General: No Apparent Distress, Comfortable at rest
HEENT: Anicteric and Moist mucous membranes
Respiratory: Clear; No Wheezes, Rales or Rhonchi
Cardiac: S1/S2 and Regular Rhythm
GI: Soft, Non Tender, Non Distended and Normal Bowel Sounds
Musculoskeletal: No Edema and Lt knee immobilizer in place
Neuro: Awake Alert Conversant Coherent
Acute oblique Fx of the distal Lt. femoral metadiaphysis without displacement- s/p mechanical fall
Total knee arthroplasty hardware appears intact and well-positioned.
- PRN Analgesia
- Ortho consult appreciated conservative mgmt recommended non-weight bearing, maintain Knee-immobilizer full-timer, removing only for itching purposes, follow up in 2 weeks for repeat X-rays
Anemia
Iron Deficiency
Anemia of Chronic disease
Mild Thrombocytopenia
-H&H stable, Plt improving
-IV iron supplementation, switch to oral on discharge
HX IM nail L femur 08/01/2023 [facility]
HX [facility]
HX Chr HFrEF
Cardiomyopathy
LVEF 40 to 45% January 2022 ECHO
LVEF 50 to 55 % in 09/03/23 ECHO
-stable
- cont. Carvedilol
Multivessel CAD
HLD
- Remote HX STEMI
- he has refused CABG and underwent LAD PCI January 2022
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
Paroxysmal atrial fibrillation
- Eliquis resumed
- cont. Carvedilol
HX PE
- Eliquis resumed
HX Diabetes
- on Jardiance
- add ISS low
Known HX - not acute problems
Obesity with a BMI of 31
HX SDH
Prostate CA by history
HX Proteus UTI
Compression fractures lumbar DJD
Nephrolithiasis left kidney
Wwbsog-hcadxo-fmlgiudwy counseling
DVT Px: SCD
Code: DNR/DNI
Medically stable for discharge SNF rehab with outpatient follow up recommendations.
discussed with patient at bedside and patient's daughter ANGELA Broussard over phone
I spent a total of 50 minutes with the patient or on the floor. More than 50% of this time involved counseling and coordination of care.
Anticipated Discharge: Today
Subjective/Interval History
-
Date of Service: March 09, 2024
Seen and examined at bedside in no acute distress resting comfortably in bed. Reports overall feeling well. Denies new acute issues at this time.
Objective Data
-
Labs:
Laboratory Results
03/09/24
06:44
WBC Pending
Hgb Pending
Hct Pending
Plt Count Pending
Sodium Pending
Potassium Pending
Chloride Pending
Carbon Dioxide Pending
BUN Pending
Creatinine Pending
Glucose Pending
Calcium Pending
Vital Signs:
Vital Signs
Temp Pulse Resp BP Pulse Ox
97.8 F 63 18 152/71 100
03/08/24 23:12 03/08/24 23:12 03/08/24 23:12 03/08/24 23:12 03/08/24 23:12
I&O
03/08/24 03/09/24 03/10/24
06:59 06:59 06:59
Intake Total 1920 / 1920 1240 / 1240
Output Total 1200 / 1200 725 / 725
Balance 795 / 150 515 / 515
[2024-03-09 07:08] VITALS: BP 146/71
[2024-03-09 07:43] LABS: Hematocrit 34.1 % (39.0-52.0); Hemoglobin 11.7 g/dL (13.0-18.0); Mean Corp Hgb Conc. 34.3 g/dL (33.0-37.0); Mean Corpuscular Hgb 31.4 pg (27.0-31.0); Mean Corpuscular Volume 91.4 fL (80.0-94.0); Mean Platelet Volume 10.7 fL (7.4-10.4); Platelet Count 122 10^3/uL (130-400); Red Blood Cell Count 3.73 10^6/uL (4.70-6.10); Red Cell Dist. Width 14.3 % (11.5-14.5); White Blood Cell Count 5.3 10^3/uL (4.8-10.8)
[2024-03-09 08:03] LABS: Blood Urea Nitrogen 21 mg/dl (9-20); Calcium 9.2 mg/dl (8.4-10.2); Carbon Dioxide 27 mmol/L (22-30); Chloride 108 mmol/L (98-107); Estimated Creatinine Clearance 84 ml/min; Glucose 92 mg/dl (70-99); Magnesium 1.8 mg/dl (1.6-2.3); Phosphorus 3.8 mg/dl (2.5-4.5); Potassium 4.1 mmol/L (3.5-5.1); Sodium 139 mmol/L (135-145); eGFR > 60.00
--- NOTE | 2024-03-09 08:25 | PN.CDI ---
CDI
- -
CDI:
Physician Documentation Request
Admit Date: 03/07/24 02:00
Dear Doctor Crow,
Patient admitted with acute left oblique fracture of distal femoral metadiaphysis.
H&P, 'States that today he was sitting on the bed and they have a satin spread. States that he started to slip off and he landed on both of his knee's.'
03/06 Femur X-ray, 'Diffuse demineralization.'
Please provide in your note the likely etiology/ etiologies of fracture:
Multifactorial due to low level fall and age- related osteoporosis
Low level fall only
Other
Use of terms such as suspected, likely, concern for, or probable (associated with a specific diagnosis that is being evaluated, monitored, or treated as if it exists) are acceptable and can be coded in the inpatient setting, when documented at the
time of discharge.
Thank you,
Katie LEYVA,RN,CCDS
CDI Specialist
Available via tiger text
Please use your independent medical judgment in providing your response.
[2024-03-09] MEDS: COREG 6.25 MG PO (08:32)
[2024-03-09] MEDS: PROTONIX 40 MG PO (08:33)
[2024-03-09] MEDS: COLACE 100 MG PO (08:33)
[2024-03-09] MEDS: ELIQUIS 5 MG PO (08:33)
[2024-03-09] MEDS: ASPIR LOW (ENTERIC COATED) 81 MG PO (08:33)
[2024-03-09] MEDS: CRESTOR 20 MG PO (08:33)
[2024-03-09] MEDS: VITAMIN B-12 1000 MCG PO (08:34)
[2024-03-09] MEDS: SENOKOT 17.2 MG PO (08:34)
[2024-03-09] MEDS: JARDIANCE 10 MG PO (08:34)
--- NOTE | 2024-03-09 14:01 | W.DCSUMMARY ---
Discharge Summary
Discharge Data
Date of Admission: 03/07/24
Date of Discharge: 03/09/24
-
Pending Results: No
Hospital Course
83M HX Both TKA, Hx HFrEF with recovered EF, Afib/Flutter, CAD, PE/DVT, HX SDH seen at ER for evaluation of Lt. knee pain s/p mechanical fall at home. Found to have acute oblique Fx of the distal Lt. femoral metadiaphysis without displacement.
Total knee arthroplasty hardware appeared intact and well-positioned. Ortho consult appreciated, recommended conservative mgmt non-weight bearing, maintain knee-immobilizer full-time, removing only for itching purposes, follow up in 2 weeks for
repeat X-rays. Fracture Multifactorial due to low level fall and age- related osteoporosis. Patient was also found to have Vit B12 deficiency, supplementation was started. Anemia Iron Deficiency, Anemia of Chronic disease, Mild Thrombocytopenia,
H&H stable, Plt improving. Treated with IV iron supplementation, switched to oral on discharge. Medically stable, patient was discharged to SNF rehab with outpatient follow up recommendations.
Discharge Plan
-
Patient Disposition: Group Home/SNF
Discharge Diagnosis/Procedures: Acute oblique Fracture of the distal Lt. femoral metadiaphysis without displacement
Iron Deficiency Anemia
Anemia of Chronic Disease
B12 deficiency
Mild Thrombocytopenia
Left Femur Nail fixation July 2023
History Heart Failure with reduced Ejection Fraction, recovered Ejection Fraction
Coronary Artery Disease
Paroxysmal Atrial Fibrillation
Obesity
Condition: Fair
Diet: Regular
Activity: With assistance and Do not bear weight L leg
Additional Activity: Left Knee Immobilizer to be in place division commander, remove briefly only for itching purposes then replace.
Driving Restrictions: Not until seen by your Dr
Blood Work: Please repeat CBC with primary care provider in 1 week of discharge
Repeat Iron studies and B12 level with primary care provider in 1 month of discharge.
Others Tests: Follow up with Orthopedic for repeat imaging in 2 weeks
Other Services: PT and OT
Activity Restrictions/Additional Instructions:
Please follow up with primary care provider in 1 week of discharge and Orthopedic in 2 weeks of discharge.
rosuvastatin 20 mg tablet 40 mg PO DAILY High cholesterol
carvedilol 6.25 mg tablet 6.25 mg PO BID Blood pressure and Heart Failure
multivitamin with folic acid 400 mcg tablet (Tab-A-Nanci) 1 tab PO HS Supplement
pantoprazole 20 mg tablet,delayed release 40 mg PO DAILY Gastrointestinal Issue
solifenacin 10 mg tablet 10 mg PO HS Urinary Issue
empagliflozin 10 mg tablet (Jardiance) 10 mg PO DAILY For Heart Failure
acetaminophen 325 mg tablet 650 mg (2 x 325 mg) PO QID 7 days Pain control
apixaban 5 mg tablet (Eliquis) 5 mg PO BID for paroxysmal atrial fibrillation stroke risk reduction
New Medications
cyanocobalamin (vitamin B-12) 1,000 mcg tablet 1,000 mcg PO DAILY B12 deficiency supplementation
docusate sodium 100 mg capsule 100 mg PO BID for constipation
ferrous gluconate 324 mg (38 mg iron) tablet 324 mg PO DAILY for iron deficiency anemia and anemia of chronic disease
oxycodone 5 mg tablet 5 mg PO BIDPRN PRN moderate severe pain 5 day supply
Please take medications as prescribed/recommended and follow up with primary care provider and/or other healthcare provider involved in your care for refills and/or further adjustment to your medication regimen as necessary.
Referrals:
Abdirashid Shukla MD [Family Provider] - in one week
Gunner Cross MD [Active] - in two weeks
Prescriptions:
New
docusate sodium 100 mg Capsule
100 mg PO BID 7 Days Qty: 14 0RF
Rx Instructions:
Hold if diarrhea
oxycodone 5 mg Tablet
5 mg PO BIDPRN PRN (Reason: moderate severe pain) 5 Days Qty: 10 0RF
cyanocobalamin (vitamin B-12) 1,000 mcg Tablet
1,000 mcg PO DAILY 30 Days Qty: 30 0RF
acetaminophen 325 mg Tablet
650 mg PO QID 7 Days Qty: 56 0RF
Rx Instructions:
4x a day for 1 week then switch to as needed
ferrous gluconate 324 mg (38 mg iron) tablet
324 mg PO DAILY 30 Days Qty: 30 0RF
Continued
rosuvastatin 20 MG tablet
40 mg PO DAILY
multivitamin with folic acid [Tab-A-Nanci] 1 TABLET tablet
1 tab PO HS
carvedilol 6.25 MG tablet
6.25 mg PO BID
pantoprazole 20 mg Tablet,Delayed Release (Dr/Ec)
40 mg PO DAILY
solifenacin 10 mg Tablet
10 mg PO HS
Jardiance 10 mg tablet
10 mg PO DAILY
Eliquis 5 MG tablet
5 mg PO BID 30 Days Qty: 60 3RF
Discharge Orders:
Discharge Patient (As Directed); Ordered 03/09/24
Ordered By: Juan Maria
Discharge Date and Time
Discharge Date/Time: 03/09/24 17:24
Print Language: SPANISH
--- NOTE | 2024-03-09 14:26 | CM ---
patient ready for dc to [facility].nedra obtained auth from [facility] #[id number] for 5 days from 03/09 m70 03/13 .ambulance auth with acute care is #[id number].nedra gave info to aiden at [facility].
report number is [phone] and fax number is [phone].i spoke with man russo.patient signed imm letter.
[2024-03-09] MEDS: FERRLECIT 110 MG IV (14:59)
[2024-03-09 15:34] VITALS: BP 142/58
--- NOTE | 2024-03-09 16:35 | PTCARENOTE ---
Attempts made to call [facility] with the number supplied by [phone]. it states mail box is full and can not accept more VM's. p/u is [phone] this attempt is [phone]. Will try again.
[2024-03-09] MEDS: ROXICODONE 5 MG PO (16:46)
[2024-03-09 16:55] LABS: COVID-19 Antigen Negative (Negative)
== END 2024-03-09 17:24 | DRG 543 ==
LOC: 2 SOUTH 02:00
PROVIDERS: Clinical Nurse Specialist Family Health; ADMITTING PHYSICIAN Internal Medicine; ATTENDING PHYSICIAN Internal Medicine; CONSULT PHYSICIAN Orthopaedic Surgery; EMERGENCY PHYSICIAN Student in an Organized Health Care Education/Training Program; FAMILY PHYSICIAN Family Medicine
DX: M80.052A Age-related osteoporosis with current pathological fracture, left femur, initial encounter for fracture (principal); I42.9 Cardiomyopathy, unspecified; I50.22 Chronic systolic (congestive) heart failure; D50.9 Iron deficiency anemia, unspecified; I25.10 Atherosclerotic heart disease of native coronary artery without angina pectoris; I11.0 Hypertensive heart disease with heart failure; I48.0 Paroxysmal atrial fibrillation; E66.9 Obesity, unspecified; D69.6 Thrombocytopenia, unspecified; Z68.30 Body mass index [BMI] 30.0-30.9, adult; S72.335A Nondisplaced oblique fracture of shaft of left femur, initial encounter for closed fracture; W19.XXXA Unspecified fall, initial encounter
CPT/HCPCS: 73552; 73564; 80048; 80053; 82607; 82746; 82962; 83036; 83540; 83550; 83735; 84100; 85014; 85018; 85025; 85027; 85049; 87811; 97163; 97167; 97530; 97535; 99285; J2916

== ENCOUNTER 2024-03-12 14:13 | Outpatient (RCR) | payer OTHER, SELFPAY | END 2024-03-12 23:59 | disposition home or self-care (01) | LOC: RPT 14:13 | PROVIDERS: ATTENDING PHYSICIAN Physical Medicine & Rehabilitation; FAMILY PHYSICIAN Family Medicine | DX: S72.92XD Unspecified fracture of left femur, subsequent encounter for closed fracture with routine healing (principal); Z47.89 Encounter for other orthopedic aftercare (principal); Z98.890 Other specified postprocedural states; R26.2 Difficulty in walking, not elsewhere classified; Z91.81 History of falling; K81.0 Acute cholecystitis | CPT/HCPCS: 97110; 97116; 97530 ==

== ENCOUNTER 2024-06-14 15:49 | Outpatient (RCR) | payer OTHER, SELFPAY | END 2024-06-14 23:59 | disposition home or self-care (01) | LOC: RPT 15:49 | PROVIDERS: ATTENDING PHYSICIAN Physician Assistant Medical; FAMILY PHYSICIAN Family Medicine | DX: M97.8XXA Periprosthetic fracture around other internal prosthetic joint, initial encounter (principal); Z96.652 Presence of left artificial knee joint; Z73.6 Limitation of activities due to disability | CPT/HCPCS: 97110; 97116; 97161; 97530; 97535 ==

== ENCOUNTER 2024-07-11 10:58 | Outpatient (RCR) | payer OTHER, SELFPAY | END 2024-07-11 23:59 | disposition home or self-care (01) | LOC: RPT 10:58 | PROVIDERS: ATTENDING PHYSICIAN Physician Assistant Medical; FAMILY PHYSICIAN Family Medicine | DX: M97.8XXD Periprosthetic fracture around other internal prosthetic joint, subsequent encounter (principal); Z73.6 Limitation of activities due to disability; R26.89 Other abnormalities of gait and mobility; M62.81 Muscle weakness (generalized); Z96.652 Presence of left artificial knee joint | CPT/HCPCS: 97110; 97116; 97530 ==

== ENCOUNTER 2024-08-13 13:01 | Outpatient (RCR) | payer OTHER, SELFPAY | END 2024-08-13 23:59 | disposition home or self-care (01) | LOC: RPT 13:01 | PROVIDERS: ATTENDING PHYSICIAN Physician Assistant Medical; FAMILY PHYSICIAN Family Medicine | DX: M97.8XXD Periprosthetic fracture around other internal prosthetic joint, subsequent encounter (principal); Z73.6 Limitation of activities due to disability; R26.89 Other abnormalities of gait and mobility; M62.81 Muscle weakness (generalized); Z96.652 Presence of left artificial knee joint | CPT/HCPCS: 97110; 97116; 97530 ==

== ENCOUNTER 2024-09-14 14:00 | Outpatient (RCR) | payer OTHER, SELFPAY | END 2024-09-14 23:59 | disposition home or self-care (01) | LOC: RPT 14:00 | PROVIDERS: ATTENDING PHYSICIAN Physician Assistant Medical; FAMILY PHYSICIAN Family Medicine | DX: M97.8XXD Periprosthetic fracture around other internal prosthetic joint, subsequent encounter (principal); Z73.6 Limitation of activities due to disability; R26.89 Other abnormalities of gait and mobility; Z96.652 Presence of left artificial knee joint; M62.81 Muscle weakness (generalized) | CPT/HCPCS: 97110; 97116; 97530 ==

== ENCOUNTER 2024-10-12 14:31 | Outpatient (RCR) | payer OTHER, SELFPAY | END 2024-10-12 23:59 | disposition home or self-care (01) | LOC: RPT 14:31 | PROVIDERS: ATTENDING PHYSICIAN Physician Assistant Medical; FAMILY PHYSICIAN Family Medicine | DX: M97.8XXD Periprosthetic fracture around other internal prosthetic joint, subsequent encounter (principal); X58.XXXD Exposure to other specified factors, subsequent encounter; Z73.6 Limitation of activities due to disability; R26.89 Other abnormalities of gait and mobility; M62.81 Muscle weakness (generalized); Z96.652 Presence of left artificial knee joint | CPT/HCPCS: 97110; 97116; 97530 ==

== ENCOUNTER 2024-11-09 14:09 | Outpatient (RCR) | payer OTHER, SELFPAY | END 2024-11-09 23:59 | disposition home or self-care (01) | LOC: RPT 14:09 | PROVIDERS: ATTENDING PHYSICIAN Physician Assistant Medical; FAMILY PHYSICIAN Family Medicine | DX: M97.8XXD Periprosthetic fracture around other internal prosthetic joint, subsequent encounter (principal); X58.XXXD Exposure to other specified factors, subsequent encounter; Z73.6 Limitation of activities due to disability; R26.89 Other abnormalities of gait and mobility; Z96.652 Presence of left artificial knee joint; M62.81 Muscle weakness (generalized) | CPT/HCPCS: 97110; 97116; 97530 ==

== ENCOUNTER 2024-12-11 13:55 | Outpatient (RCR) | payer OTHER, SELFPAY | END 2024-12-11 23:59 | disposition home or self-care (01) | LOC: RPT 13:55 | PROVIDERS: ATTENDING PHYSICIAN Physician Assistant Medical; FAMILY PHYSICIAN Family Medicine | DX: M97.8XXD Periprosthetic fracture around other internal prosthetic joint, subsequent encounter (principal); Z73.6 Limitation of activities due to disability; R26.89 Other abnormalities of gait and mobility; M62.81 Muscle weakness (generalized); X58.XXXD Exposure to other specified factors, subsequent encounter; Z96.652 Presence of left artificial knee joint | CPT/HCPCS: 97110; 97116; 97530 ==

== ENCOUNTER 2025-01-10 14:04 | Outpatient (RCR) | payer OTHER, SELFPAY | END 2025-01-10 23:59 | disposition home or self-care (01) | LOC: RPT 14:04 | PROVIDERS: ATTENDING PHYSICIAN Physician Assistant Medical; FAMILY PHYSICIAN Family Medicine | DX: M97.8XXD Periprosthetic fracture around other internal prosthetic joint, subsequent encounter (principal); Z73.6 Limitation of activities due to disability; R26.89 Other abnormalities of gait and mobility; M62.81 Muscle weakness (generalized); X58.XXXD Exposure to other specified factors, subsequent encounter; Z96.652 Presence of left artificial knee joint | CPT/HCPCS: 97110; 97116; 97530 ==

== ENCOUNTER 2025-02-07 14:07 | Outpatient (RCR) | payer OTHER, SELFPAY | END 2025-02-07 23:59 | disposition home or self-care (01) | LOC: RPT 14:07 | PROVIDERS: ATTENDING PHYSICIAN Physician Assistant Medical; FAMILY PHYSICIAN Family Medicine | DX: M97.8XXD Periprosthetic fracture around other internal prosthetic joint, subsequent encounter (principal); Z73.6 Limitation of activities due to disability; R26.89 Other abnormalities of gait and mobility; M62.81 Muscle weakness (generalized); X58.XXXD Exposure to other specified factors, subsequent encounter; Z96.652 Presence of left artificial knee joint | CPT/HCPCS: 97110; 97112; 97116; 97530 ==

== ENCOUNTER 2025-03-12 14:25 | Outpatient (RCR) | payer OTHER, SELFPAY | END 2025-03-13 08:54 | disposition home or self-care (01) | LOC: RPT 14:25 | PROVIDERS: ATTENDING PHYSICIAN Physician Assistant Medical; FAMILY PHYSICIAN Family Medicine | DX: M97.8XXD Periprosthetic fracture around other internal prosthetic joint, subsequent encounter (principal); Z73.6 Limitation of activities due to disability; R26.89 Other abnormalities of gait and mobility; X58.XXXD Exposure to other specified factors, subsequent encounter; M62.81 Muscle weakness (generalized); Z96.652 Presence of left artificial knee joint | CPT/HCPCS: 97110; 97112; 97530; 97535 ==